=== PATIENT | male | born 1955 | race American Indian/Alaskan Native ===

== ENCOUNTER 2019-10-26 13:46 | Emergency (ER) | payer MEDICARE ==
[2019-10-26 14:22] VITALS: BP 139/82
--- NOTE | 2019-10-26 15:09 | Emergency Department Report ---
ED General Adult HPI - General Chief complaint: GI Bleed Stated complaint: RECTAL BLEED Time Seen by Provider: 10/26/19 14:55 Source: patient, EMS (EMS documentation not available for chart review at this time.), RN notes reviewed Mode of arrival: Stretcher Limitations: No Limitations - History of Present Illness Initial comments: The patient is a 64-year-old gentleman, not known to myself previously, with a history of hypertension and alcoholism. He specifically states that he does not take the following blood thinning medications: Aspirin, Plavix, Coumadin, Motrin, Naprosyn, eliquis, pradaxa, xarelto He presents to the ER today with complaint of painless rectal bleeding times one day. He has bright red blood mixed with brown stool. He denies physical pain. He believes he had a colonoscopy last year which was normal. There is no trauma , he has no other complaints, there is no vomiting, hematemesis, black stool. Bloody stool is intermittent, painless, typically comes with defecation. Otherwise, no other exacerbating or relieving factors. -: Gradual Quality: other Consistency: other Improves with: other Worsens with: other - Related Data Home Medications Medication Instructions Recorded Confirmed Last Taken amLODIPine 10 mg PO DAILY 10/26/19 10/26/19 Unknown Allergies Allergy/AdvReac Type Severity Reaction Status Date / Time No Known Allergies Allergy Verified 10/26/19 14:16 ED Review of Systems ROS: Stated complaint: RECTAL BLEED Other details as noted in HPI Constitutional: denies: fever Eyes: denies: eye discharge ENT: denies: congestion Respiratory: denies: wheezing Cardiovascular: denies: syncope Gastrointestinal: other. denies: abdominal pain, nausea, vomiting, hematemesis, melena Genitourinary: as per HPI Musculoskeletal: denies: myalgia Skin: denies: lesions Neurological: denies: weakness Hematological/Lymphatic: denies: easy bleeding ED Past Medical Hx - Past Medical History Previous Medical History?: Yes Hx Hypertension: Yes Additional medical history: Alcoholism - Surgical History Past Surgical History?: No - Social History Smoking Status: Never Smoker Substance Use Type: Alcohol - Medications Home Medications: Home Medications Medication Instructions Recorded Confirmed Last Taken Type amLODIPine 10 mg PO DAILY 10/26/19 10/26/19 Unknown History ED Physical Exam - General Limitations: No Limitations General appearance: alert, in no apparent distress - Head Head exam: Present: atraumatic, normocephalic - Eye Eye exam: Present: normal appearance, EOMI. Absent: nystagmus - ENT ENT exam: Present: normal exam, normal orophraynx, mucous membranes moist, normal external ear exam - Neck Neck exam: Present: normal inspection, full ROM. Absent: tenderness, me ningismus - Respiratory Respiratory exam: Present: normal lung sounds bilaterally. Absent: respiratory distress, wheezes, rales, rhonchi, stridor - Cardiovascular Cardiovascular Exam: Present: regular rate, normal rhythm, normal heart sounds. Absent: bradycardia, tachycardia, irregular rhythm, systolic murmur, diastolic murmur, rubs, gallop - GI/Abdominal GI/Abdominal exam: Present: soft, normal bowel sounds. Absent: distended, tenderness, guarding, rebound, rigid, pulsatile mass - Rectal Rectal exam: Present: normal inspection, normal rectal tone, heme (+) stool, hemorrhoids, other (there is a large external thrombosed hemorrhoid at approximately 4:00, there is brown stool mixed with trace red blood, no obvious blood noted from the inside rectal vault, chaperoned by nurse Sylvie Molina) - Extremities Exam Extremities exam: Present: normal inspection, full ROM, other (2+ pulses noted in the bilateral upper and lower extremities. There is no long bony tenderness. The pelvis is stable. The muscular compartments are soft. There is no palpable cord. There is negative Homans sign.). Absent: pedal edema, calf tenderness - Back Exam Back exam: Present: normal inspection, full ROM. Absent: tenderness, CVA tenderness (R), CVA tenderness (L), paraspinal tenderness, vertebral tenderness - Neurological Exam Neurological exam: Present: alert, other (there is no facial droop. The tongue is midline. Extraocular movements are intact bilaterally. Speaking in full complete sentences. Hearing is grossly intact. Phonation is within normal limits. Sensation intact to light touch in 4 extremities. 5/5 strength 4 extremities.). Absent: motor sensory deficit - Psychiatric Psychiatric exam: Present: normal affect, normal mood - Skin Skin exam: Present: warm, dry, intact, normal color. Absent: rash ED Course Vital Signs 10/26/19 14:16 Temperature 98.6 F Pulse Rate 94 H Respiratory 16 Rate Blood Pressure 139/82 O2 Sat by Pulse 96 Oximetry ED Medical Decision Making - Lab Data Result diagrams: 10/26/19 15:20 10/26/19 15:20 Vital Signs 10/26/19 14:16 Temperature 98.6 F Pulse Rate 94 H Respiratory 16 Rate Blood Pressure 139/82 O2 Sat by Pulse 96 Oximetry - Medical Decision Making Differential diagnosis, including without limited to: Thrombosed external hemorrhoid, internal hemorrhoids Assessment and plan: 62-year-old gentleman with probable thrombosed external hemorrhoids. He is otherwise afebrile with reassuring vital signs, with no abdominal tenderness, rebound or guarding, reports an unremarkable colonoscopy last year, and has brown stool in the rectal vault. Bleeding is most likely coming from the thrombosed external hemorrhoid, which does have a mild bloody leak to it. Warm compresses as needed, sitz bath as needed, screening laboratory studies, patient can follow up with outpatient gastroenterology, or colorectal surgery. Vital Signs 10/26/19 14:16 Temperature 98.6 F Pulse Rate 94 H Respiratory 16 Rate Blood Pressure 139/82 O2 Sat by Pulse 96 Oximetry Labs 10/26/19 10/26/19 10/26/19 15:20 15:20 15:20 WBC 10.7 RBC 5.49 H Hgb 14.2 Hct 43.0 MCV 78 L MCH 26 L MCHC 33 RDW 15.3 H Plt Count 267 PT 13.4 INR 1.01 APTT 44.9 H Sodium 139 Potassium 4.1 Chloride 102.3 Carbon Dioxide 23 Anion Gap 18 BUN 15 Creatinine 1.0 Estimated GFR > 60 BUN/Creatinine Ratio 15 Glucose 96 Calcium 9.8 Total Bilirubin 0.20 AST 23 ALT 23 Alkaline Phosphatase 84 Total Protein 7.2 Albumin 4.4 Albumin/Globulin Ratio 1.6 Reassessed at 4:30 PM. No acute distress. Objective laboratory markers unremarkable. He is suitable to follow up as an outpatient at this time. Critical care attestation.: If time is entered above; I have spent that time in minutes in the direct care of this critically ill patient, excluding procedure time. ED Disposition Clinical Impression: External hemorrhoid, bleeding Disposition: DC-01 TO HOME OR SELFCARE Is pt being admited?: No Does the pt Need Aspirin: No Condition: Stable Instructions: Sitz Bath (GEN) Additional Instructions: Avoid consumption of Motrin, ibuprofen, Naprosyn, Aleve, aspirin, alcohol. Avoid consumption of blood thinning medications. Eat plenty of fiber, vegetables, lean protein. Apply warm compresses as often as as needed to thrombosed external hemorrhoid. Patient may use sitz baths as often as as needed for symptom and supportive control for bleeding external hemorrhoid. External hemorrhoid may persist for a few weeks. Recommend follow-up with a general surgeon or gastroenterology within the next 2 weeks. Please return to the emergency room right away with new, worsening or different symptoms, or symptoms not present on the initial emergency room evaluation. Referrals: ANURAG PATE DO [Staff Physician] - as needed DMITRY DE LA FUENTE MD [Staff Physician] - as needed Forms: Accompanied Note
[2019-10-26 15:36] LABS: Hemoglobin 14.2 gm/dl (11.8-15.2); Mean Corpuscular HGB Conc 33 % (32-34); Mean Corpuscular Volume 78 fl (84-94); Platelet Count 267 K/mm3 (140-440); Red Blood Count 5.49 M/mm3 (3.65-5.03); Red Cell Distribution Width 15.3 % (13.2-15.2)
[2019-10-26 15:47] LABS: INR 1.01 (0.87-1.13)
[2019-10-26 15:49] LABS: Partial Thromboplastin Time 44.9 Sec. (24.2-36.6)
[2019-10-26 15:59] LABS: Alanine Aminotransferase 23 units/L (7-56); Albumin 4.4 g/dL (3.9-5); BUN/Creatinine Ratio 15; Blood Urea Nitrogen 15 mg/dL (9-20); Calcium 9.8 mg/dL (8.4-10.2); Hemolysis Index 5
== END 2019-10-26 18:55 | disposition home or self-care (01) ==
LOC: ED 13:46
DX: K64.4 Residual hemorrhoidal skin tags (principal); K62.5 Hemorrhage of anus and rectum; I10 Essential (primary) hypertension; Z79.899 Other long term (current) drug therapy
CPT/HCPCS: 36415; 80053; 85027; 85610; 85730

== ENCOUNTER 2019-11-03 04:59 | Emergency (ER) | payer MEDICARE ==
[2019-11-03 05:25] VITALS: BP 154/104
--- NOTE | 2019-11-03 07:42 | Emergency Department Report ---
Chief Complaint: Upper Respiratory Infection Stated Complaint: NASAL CONGESTION Time Seen by Provider: 11/03/19 07:25 - HPI History of Present Illness: This is a 64-year-old male who presents the ED complaining of nasal congestion for the past 7 days. Patient denies fever/chills/nausea vomiting patient denies coughing, history of asthma or COPD. Patient states that he is she has had nasal congestion for the past week with no other symptoms. - ROS Review of Systems: As noted in HPI - Exam Vital Signs: Vital Signs 11/03/19 05:08 Temperature 99.0 F Pulse Rate 97 H Respiratory 20 Rate Blood Pressure 154/104 O2 Sat by Pulse 98 Oximetry Physical Exam: GENERAL: Alert and oriented x3, no apparent distress, Normal Gait, atraumatic. HEAD: Head is normocephalic and a-traumatic. EARS: symetrical, atraumatic, non tender, ear canal clear and moderate cerumen, tympanic membrance non inflamed. gross auditory nml bilaterally. NOSE: Nose symetrical, Nontender,Nares appeared normal. No maxillary or frontal sinus tenderness MOUTH:Mouth is well hydrated and without lesions. Tonsils nonerythematous or swollen, Uvula midline, Tongue not elevated. Mucous membranes are moist. Posterior pharynx clear, no exudate or lesions. Patent airways. NECK: Supple. Non edematous, No lymphadenopathy or thyromegaly. SKIN: Warm and dry, No lesions, No ulceration or induration present. MSE screening note: Focused history and physical exam performed. Due to findings the following was ordered: ED Medical Decision Making - Medical Decision Making 64-year-old male who presented for nasal congestion Discussed with patient that this is not a medical emergency. Discussed with patient to follow-up with primary care physician. Vital signs are normal, patient is in no acute or respiratory distress. ED Disposition for MSE Clinical Impression: Nasal congestion Disposition: Z-07 MED SCREENING EXAM-LEFT Is pt being admited?: No Does the pt Need Aspirin: No Condition: Stable Instructions: Allergic Rhinitis (ED) Additional Instructions: Make sure to follow up with the primary care physician as discussed. Take all your medications as you've been prescribed. If you have any worsening symptoms or develop new symptoms please return to ED immediately. Prescriptions: Fluticasone [Flonase] 1 spray NS QDAY #1 bottle Referrals: TARA ESPINAL MD [Primary Care Provider] - 3-5 Days Forms: Work/School Release Form(ED) Time of Disposition: 07:41
== END 2019-11-03 07:56 | disposition left against medical advice (07) ==
LOC: ED 04:59
DX: R09.81 Nasal congestion (principal)
CPT/HCPCS: 99282